=== PATIENT | female | born 2000 | race Caucasian/White ===

== ENCOUNTER 2018-03-06 21:50 | Emergency (ER) | payer OTHER ==
[2018-03-06 22:04] VITALS: BP 116/72
[2018-03-06] MEDS ORDERED: DOXYcycline CAP(*) 100 MG PO ONE (23:16)
--- NOTE | 2018-03-06 23:21 | UC ---
Skin Complaint HPI - HPI Summary HPI Summary: The patient is a 17-year-old female that presents here for evaluation of painful papules and pustules that have developed on her face. She goes to . She plays soccer. She has had no history of MRSA. - History of Current Complaint Chief Complaint: UCSkin Time Seen by Provider: 03/06/18 23:10 Stated Complaint: SORES ON FACE Hx Obtained From: Patient Hx Last Menstrual Period: 3 WEEKS AGO Onset/Duration: Gradual Onset, Lasting Weeks Timing: Constant Onset Severity: Mild Current Severity: Mild Pain Intensity: 2 Location: Face Character: Pain, Redness, Raised, Painful Aggravating Factor(s): Nothing Alleviating Factor(s): Nothing - Allergy/Home Medications Allergies/Adverse Reactions: Allergies Allergy/AdvReac Type Severity Reaction Status Date / Time No Known Allergies Allergy Verified 03/06/18 22:03 Home Medications: Home Medications Clotrimazole 1% TOPICAL (NF) [Lotrimin 1% TOPICAL (NF)] 1 applic TOPICAL PRN 05/23 [History] Hydrocortisone [Cortisone] PRN 03/06/18 [History] Neomycin/Bacitracin/Polymyxinb [Neosporin Ointment] PRN 03/06/18 [History] Review of Systems Constitutional: Negative Skin: Rash Eyes: Negative ENT: Negative Respiratory: Negative Cardiovascular: Negative Gastrointestinal: Negative Genitourinary: Negative Motor: Negative Neurovascular: Negative Musculoskeletal: Negative Neurological: Negative Psychological: Negative All Other Systems Reviewed And Are Negative: Yes PMH/Surg Hx/FS Hx/Imm Hx Previously Healthy: Yes - Surgical History Surgical History: Yes Surgery Procedure, Year, and Place: TONSILLECTOMY, WISDOM TEETH EXTRACTION - Family History Known Family History: Positive: Hypertension - Social History Alcohol Use: Occasionally Substance Use Type: None Smoking Status (MU): Never Smoked Tobacco Physical Exam Triage Information Reviewed: Yes Appearance: Well-Appearing, No Pain Distress, Well-Nourished Vital Signs: Initial Vital Signs Temp 98.7 F 03/06/18 22:00 Pulse 89 03/06/18 22:00 Resp 16 03/06/18 22:00 BP 116/72 03/06/18 22:00 Pulse Ox 100 03/06/18 22:00 Vital Signs Reviewed: Yes Eyes: Positive: Conjunctiva Clear ENT: Positive: Hearing grossly normal. Negative: Nasal congestion, Nasal drainage, Trismus, Muffled voice, Dental tenderness, Sinus tenderness, Uvula midline Neck: Positive: Supple, Nontender, No Lymphadenopathy Respiratory: Positive: Chest non-tender, Lungs clear Cardiovascular: Positive: RRR, No Murmur Psychological Exam: Normal Skin Exam: Other - ABOUT 10 PAPULES AND PUSTULES ON FACE Course/Dx - Diagnoses Provider Diagnoses: ACNE. ?MRSA Discharge - Sign-Out/Discharge Documenting (check all that apply): Patient Departure All imaging exams completed and their final reports reviewed: No Studies - Discharge Plan Condition: Stable Disposition: HOME Prescriptions: DOXYcycline CAP(*) [DOXYcycline 100MG CAP(*)] 100 mg PO BID #20 cap Referrals: No Primary Care Phys,NOPCP [Primary Care Provider] - Additional Instructions: RECHECK FOR NEW OR WORSENING SYMPTOMS A NASAL SWAB FOR MRSA IS PENDING THE ANTIBIOTIC PRESCRIBED IS GOOD FOR SKIN INFECTION INCLUDING MRSA - Billing Disposition and Condition Condition: STABLE Disposition: Home
== END 2018-03-06 23:30 | disposition home or self-care (01) ==
LOC: UCEAST 21:50
DX: L70.0 Acne vulgaris (principal)
CPT/HCPCS: 87641; 99212; A9270-GY; G0463